=== PATIENT | male | born 1950 | race Caucasian/White ===

== ENCOUNTER 2017-12-16 02:04 | Outpatient (RCR) | payer MEDICARE, BC, SELFPAY ==
[2017-12-16] MEDS: Heparin 500 UNITS/5 ML SYRINGE IV (09:10)
[2017-12-16] MEDS: Normal Saline Flush 10 ML SYR IVP (09:10)
[2017-12-16 09:48] LABS: Abs Immature Grans 0.26 k/cumm (0.0-0.09); HGB 9.1 g/dL (13.5-17.5); Mean Corp. HGB Concentration 33.7 g/dL (32.0-36.0); Mean Corpuscular Hemoglobin 35.5 pg (27.0-33.0); Mean Corpuscular Volume 105.5 fL (80-95); Mean Platelet Volume 8.6 fL (8.0-11.0); RBC 2.56 m/cumm (4.50-6.00); RBC Distribution Width 14.8 % (11.8-14.1); White Blood Cell Count 3.78 k/cumm (4.4-10.8)
[2017-12-16 10:13] LABS: Platelet Count 57 x1000/uL (130-400)
[2017-12-16 10:14] LABS: Absolute Lymphocyte Count 0.38 k/cumm (1.2-3.4); Absolute Monocyte Count 0.15 k/cumm (0.11-0.7); Absolute Neutrophil Count 3.14 k/cumm (1.2-6.7); Atypical Lymphocytes % 0; Diff Comment Manual Differential
[2017-12-16 10:15] LABS: Macrocytosis 1+
[2017-12-19] MEDS: Normal Saline Flush 10 ML SYR IVP ×2 (08:05→14:25)
[2017-12-19] MEDS: Heparin 500 UNITS/5 ML SYRINGE IV ×2 (08:05→14:25)
[2017-12-19 08:25] LABS: HCT 24.7 % (40.0-50.0); HGB 8.5 g/dL (13.5-17.5); Mean Corp. HGB Concentration 34.4 g/dL (32.0-36.0); Mean Corpuscular Hemoglobin 35.6 pg (27.0-33.0); Mean Corpuscular Volume 103.3 fL (80-95); Mean Platelet Volume 9.6 fL (8.0-11.0); RBC 2.39 m/cumm (4.50-6.00)
[2017-12-19 08:45] LABS: ALT 43 U/L (12-78); AST 18 U/L (15-37); Albumin 3.4 g/dL (3.4-5.0); Alkaline Phosphatase 105 U/L (46-116); Anion Gap 7.3 mmol/L (3-11); BUN 15 mg/dL (7-18); Bilirubin, Total 0.4 mg/dL (0.2-1.0); CO2 29.7 mmol/L (21.0-32.0); CREATININE 0.98 mg/dL (0.70-1.30); Calcium 8.6 mg/dL (8.5-10.1); Chloride 106 mmol/L (98-107); Glucose 119 mg/dL (70-100); Potassium 3.7 mmol/L (3.5-5.1); Sodium 143 mmol/L (136-145); TSH 1.25 uIU/mL (0.358-3.74); Total Protein 6.3 g/dL (6.4-8.2)
[2017-12-19 08:55] LABS: White Blood Cell Count 0.58 k/cumm (4.4-10.8)
[2017-12-19 08:56] LABS: Platelet Count 6 x1000/uL (130-400)
[2017-12-19 08:57] LABS: Absolute Eosinophil Count 0.11 k/cumm (0.0-0.7); Absolute Lymphocyte Count 0.18 k/cumm (1.2-3.4); Absolute Monocyte Count 0.08 k/cumm (0.11-0.7)
[2017-12-19 08:58] LABS: Diff Comment Diff Reviewed; Nucleated RBC 1 /100WBC; Other Cells 3
[2017-12-19 08:59] LABS: Macrocytosis 1+
[2017-12-19 14:04] VITALS: BP 109/70; PULSE 80; RESP 19; TEMP 36.3; O2SAT 94
[2017-12-19 14:34] VITALS: BP 110/75; PULSE 80; RESP 20; TEMP 36
[2017-12-23] MEDS: Normal Saline Flush 10 ML SYR IVP (08:00)
[2017-12-23] MEDS: Heparin 500 UNITS/5 ML SYRINGE IV (08:00)
[2017-12-23 08:26] LABS: Abs Immature Grans 0.88 k/cumm (0.0-0.09); HCT 25.3 % (40.0-50.0); HGB 8.6 g/dL (13.5-17.5); Mean Corpuscular Hemoglobin 35.8 pg (27.0-33.0); Mean Corpuscular Volume 105.4 fL (80-95); Mean Platelet Volume 9.7 fL (8.0-11.0); RBC Distribution Width 14.2 % (11.8-14.1); White Blood Cell Count 11.22 k/cumm (4.4-10.8)
[2017-12-23 08:36] LABS: ALT 40 U/L (12-78); AST 22 U/L (15-37); Albumin 3.6 g/dL (3.4-5.0); Alkaline Phosphatase 121 U/L (46-116); Anion Gap 6.4 mmol/L (3-11); BUN 12 mg/dL (7-18); Bilirubin, Total 0.2 mg/dL (0.2-1.0); CO2 29.6 mmol/L (21.0-32.0); CREATININE 0.99 mg/dL (0.70-1.30); Calcium 8.6 mg/dL (8.5-10.1); Chloride 107 mmol/L (98-107); Glucose 113 mg/dL (70-100); Potassium 3.8 mmol/L (3.5-5.1); Sodium 143 mmol/L (136-145); Total Protein 6.6 g/dL (6.4-8.2)
[2017-12-23 09:20] LABS: Absolute Lymphocyte Count 0.56 k/cumm (1.2-3.4); Absolute Neutrophil Count 8.86 k/cumm (1.2-6.7); Platelet Count 85 x1000/uL (130-400)
[2017-12-23 09:21] LABS: Absolute Monocyte Count 1.68 k/cumm (0.11-0.7); Diff Comment Manual Differential; Nucleated RBC 2 /100WBC
[2017-12-23 09:22] LABS: Hypochromasia 3+; Macrocytosis 2+; Polychromasia Present
[2017-12-26] MEDS: Normal Saline Flush 10 ML SYR IVP (07:45)
[2017-12-26] MEDS: Heparin 500 UNITS/5 ML SYRINGE IV (07:45)
[2017-12-26 08:28] LABS: Abs Immature Grans 0.46 k/cumm (0.0-0.09); HCT 28.6 % (40.0-50.0); HGB 9.5 g/dL (13.5-17.5); Mean Corp. HGB Concentration 33.2 g/dL (32.0-36.0); Mean Corpuscular Hemoglobin 35.7 pg (27.0-33.0); Mean Corpuscular Volume 107.5 fL (80-95); Mean Platelet Volume 8.8 fL (8.0-11.0); Platelet Count 284 x1000/uL (130-400); RBC 2.66 m/cumm (4.50-6.00); RBC Distribution Width 16.7 % (11.8-14.1); White Blood Cell Count 10.77 k/cumm (4.4-10.8)
[2017-12-26 08:48] LABS: Macrocytosis 1+; Polychromasia Present
[2017-12-26 08:50] LABS: ALT 39 U/L (12-78); AST 21 U/L (15-37); Albumin 3.7 g/dL (3.4-5.0); Alkaline Phosphatase 115 U/L (46-116); Anion Gap 6.7 mmol/L (3-11); BUN 15 mg/dL (7-18); Bilirubin, Total 0.3 mg/dL (0.2-1.0); CO2 30.3 mmol/L (21.0-32.0); CREATININE 1.01 mg/dL (0.70-1.30); Calcium 8.8 mg/dL (8.5-10.1); Chloride 105 mmol/L (98-107); Glucose 102 mg/dL (70-100); Potassium 3.9 mmol/L (3.5-5.1); Sodium 142 mmol/L (136-145); TSH 1.38 uIU/mL (0.358-3.74); Total Protein 6.9 g/dL (6.4-8.2)
[2017-12-26 09:50] LABS: Absolute Neutrophil Count 8.29 k/cumm (1.2-6.7)
[2017-12-26 09:51] LABS: Absolute Lymphocyte Count 1.18 k/cumm (1.2-3.4); Absolute Monocyte Count 0.86 k/cumm (0.11-0.7); Atypical Lymphocytes % 0
[2017-12-26 09:52] LABS: Absolute Eosinophil Count 0.11 k/cumm (0.0-0.7)
[2017-12-26 09:55] LABS: Diff Comment Manual Differential
== END 2017-12-31 ==
LOC: INF 07:50
PROVIDERS: Nurse Practitioner Family; PCP Family Medicine; Visit Provider Internal Medicine Hematology & Oncology
DX: C83.10 Mantle cell lymphoma, unspecified site (principal); C85.93 Non-Hodgkin lymphoma, unspecified, intra-abdominal lymph nodes; R53.83 Other fatigue; Z01.818 Encounter for other preprocedural examination
CPT/HCPCS: 36430; 36591 ×4; P9035; 80053; 86850; 86900; 86901; 86945; 84443; 85025